=== PATIENT | male | born 1995 | race Caucasian/White ===

== ENCOUNTER 2023-08-10 19:10 | Emergency (ER) | payer SELFPAY ==
[2023-08-10 19:12] VITALS: BP 152/88; PULSE 94; RESP 16; TEMP 36.4; O2SAT 98
[2023-08-10] MEDS: Fluorescein STRIPS 100/BOX 1 MG OP (19:24)
[2023-08-10] MEDS: Tetracaine 0.5% 4 ML BTL (19:28)
--- NOTE | 2023-08-10 19:52 | ED.GENADUL_ITS ---
Discharge Plan Disposition Patient Disposition: Home Discharge Details Clinical Impression: Acute foreign body of right cornea Primary Care Provider: None,None ED Provider: Jennifer Arevalo Home Meds and New Rx's Prescriptions: New erythromycin 5 mg/gram (0.5 %) ointment 0.5 inch ophthalmic (eye) TID Qty: 3.5 0RF Continued amoxicillin 875 MG tablet 875 mg PO BID Qty: 20 0RF Discharge Instructions Additional Instructions: Use antibiotic ointment, 1-to affected eye 4-6 times daily for the next 7 days If you are not having symptomatic improvement, your eyes still irritated in 48 hours, my recommendation would be to follow-up with [facility] in [facility] [place] Wear sunglasses when you are outside, your eyes will be light sensitive I have given you fluorescein eyedrops, you may instill 1 drop hourly to the affected eye for no more than 12 hours Tylenol and ibuprofen as needed for discomfort You may also use lubricating eyedrops to help with the discomfort Medical Decision Making 27-year-old male presenting with foreign body right eye, visual acuity 20/20 OD, 20/20 OS, 20/20 OU Pupils equal round reactive to light and accommodation, foreign body under right upper lid, and foreign body noted at 9 o'clock position on iris Foreign body was removed with 18-gauge needle and eye yaquelin without incident Referred to [facility] eye care, rust ring was removed with eye yaquelin Negative [place] sign postprocedure, abrasion noted postprocedure cornea, will place on erythromycin ointment Return precautions reviewed and patient expressed understanding, discharged home in stable condition, feeling symptomatically improved Motrin Tylenol as needed pain Erythromycin for ointment for home HPI General Date/Time Provider Initiated Documentation: 08/10/23 19:20 . HPI Narrative: This 27-year-old male presents with report of right eye pain. States he was cutting metal on Thursday and felt a piece of metal go into his eye. He thinks it was a piece of steel. He denies any additional injuries. He states he has some blurred vision in the affected eye. He denies any corrective lens use. Related Data Home Medications Medication Instructions Recorded Confirmed amoxicillin 875 mg tablet 875 mg PO BID #20 tabs 10/20/16 erythromycin 5 mg/gram (0.5 %) eye 0.5 inch ophthalmic (eye) TID #3.5 08/10/23 ointment grams Previous Rx's Medication Instructions Recorded amoxicillin 875 mg tablet 875 mg PO BID #20 tabs 10/20/16 erythromycin 5 mg/gram (0.5 %) eye 0.5 inch ophthalmic (eye) TID #3.5 08/10/23 ointment grams Allergies Allergy/AdvReac Type Severity Reaction Status Date / Time No Known Allergies Allergy Unverified 10/20/16 12:55 General Stated Complaint: EyeProblem REGINA: 4 PFSH All Active Problems (Updated 08/10/23 @ 19:49 by DIOGO Persaud) Acute foreign body of right cornea (Acute) Social History Smoking risk assessment performed?: No Do you feel safe in your relationship?: Yes Course Vital Signs Vital signs: Vital Signs Temperature 36.4 C L 08/10/23 19:12 Pulse 94 H 08/10/23 19:12 Respiratory Rate 16 08/10/23 19:12 Blood Pressure 152/88 H 08/10/23 19:12 Pulse Oximetry 98 08/10/23 19:12 Temperature 36.4 C L 08/10/23 19:12 Temperature Source Temporal Artery Scan 08/10/23 19:12 Pulse 94 H 08/10/23 19:12 Respiratory Rate 16 08/10/23 19:12 Respiratory Effort Normal 08/10/23 19:20 Blood Pressure 152/88 H 08/10/23 19:12 Blood Pressure Position Sitting 08/10/23 19:12 Pulse Oximetry 98 08/10/23 19:12 Oxygen Delivery Method Room Air 08/10/23 19:12 Oxygen Flow Rate 0 08/10/23 19:12 Pain Level 7 08/10/23 19:12
[2023-08-10] MEDS: Erythromycin Ophth Oint 3.5 GM TUBE OD (19:53)
== END 2023-08-10 19:56 | disposition home or self-care (01) ==
PROVIDERS: Emergency Provider Physician Assistant
DX: T15.01XA Foreign body in cornea, right eye, initial encounter (principal); W44.D0XA Magnetic metal object unspecified, entering into or through a natural orifice, initial encounter; Y93.89 Activity, other specified
CPT/HCPCS: 65222; 99283